=== PATIENT | female | born 1975 | race Asian ===

== ENCOUNTER → 2021-02-03 | Outpatient (CLI) | payer BC ==
--- NOTE | 2021-02-03 09:12 | RAD ---
Exam Date: 02/03/2021 8:54 AM XR BILATERAL HIP (WITH OR WITHOUT PELVIS) 2 VIEWS_RIGHT Indication: Reason: RIGHT HIP AND PELVIC PAIN / Spl. Instructions: / History: . FINDINGS/ IMPRESSION: There are ill-defined soft tissue calcifications overlapping the proximal right femoral shaft, nonspe cific. No acute fracture or dislocation. Alignment and joint spaces are maintained. The soft tissues are o therwise within normal limits. Electronically signed by: Brady Chavarria MD (02/03/2021 9:09 AM) [facility]
== END ==
LOC: PMG 08:28
PROVIDERS: ATTEND Physician Assistant
DX: M70.61 Trochanteric bursitis, right hip (principal); M25.851 Other specified joint disorders, right hip
CPT/HCPCS: 73502